=== PATIENT | male | born 1965 | race Caucasian/White ===

== ENCOUNTER → 2016-08-22 12:09 | Outpatient (CLI) | payer MEDICAID | END | disposition home or self-care (01) | LOC: D.RAD 12:09 | DX: M48.32 Traumatic spondylopathy, cervical region (principal) ==

== ENCOUNTER → 2016-10-03 12:22 | Outpatient (CLI) | payer MEDICAID | END | disposition home or self-care (01) | LOC: D.MRI 12:22 | DX: M54.5 Low back pain (principal) ==

== ENCOUNTER → 2017-12-10 08:25 | Outpatient (CLI) | payer MEDICAID | END | disposition home or self-care (01) | LOC: D.CT 08:25 | DX: M25.551 Pain in right hip (principal) ==

== ENCOUNTER → 2018-04-25 05:50 | Day surgery (SDC) | payer MEDICAID ==
[2018-04-24 09:22] LABS: HEMATOCRIT 36.3 % (42.0-54.0); MCH 22.8 pg (26.0-34.0); MCHC 30.3 g/dL (31.0-37.0); MCV 75.2 fL (80.0-100.0); MEAN PLATELET VOLUME 9.2 fL (7.4-10.4); RBC 4.83 10x6/uL (4.20-6.10); RDW 18.5 % (11.5-14.5); WBC 6.7 10x3/uL (4.8-10.8)
== END | disposition home or self-care (01) ==
LOC: D.OPS 05:50
PROVIDERS: Anesthesiology
DX: K40.20 Bilateral inguinal hernia, without obstruction or gangrene, not specified as recurrent (principal); K43.9 Ventral hernia without obstruction or gangrene; E78.00 Pure hypercholesterolemia, unspecified; M10.9 Gout, unspecified; M19.90 Unspecified osteoarthritis, unspecified site; Z01.812 Encounter for preprocedural laboratory examination

== ENCOUNTER → 2018-09-02 08:32 | Outpatient (CLI) | payer MEDICAID ==
[~2018-09-02 08:32] MED LIST: COLCHICINE; DONEPEZIL HCL10 MG PO; FOLIC ACID1 MG PO; LEXAPRO10 MG PO; NEURONTIN 300300 MG PO; NORCO 10-325 TA1 TAB PO; NORVASC5 MG PO; PRAVASTATIN SOD10 MG PO; PROTONIX40 MG PO; RANITIDINE TAB 150; RELAFEN500 MG PO; TYLENOL #4 W/CO1 TAB PO; VALTREX500 MG PO; ZYLOPRIM100 MG PO
== END | disposition home or self-care (01) ==
LOC: D.CT 08:32
DX: M25.551 Pain in right hip (principal)